=== PATIENT | male | born 1965 | race Caucasian/White ===

== ENCOUNTER 2021-09-27 06:38 | Inpatient (IN) ==
--- NOTE | 2021-09-07 15:25 | PAT Medication Instructions ---
Medication Instructions Date of Service September 07, 2021 Home Medications tamsulosin 0.4 mg capsule (Flomax) 0.4 mg PO QPM Take evening before surgery tamsulosin 0.4 mg capsule (Flomax) 0.4 mg PO QPM Other Notes If you have any questions please call us at [phone] or [phone] or [phone] or [phone]
--- NOTE | 2021-09-08 08:57 | Anesthesiology Consultation ---
Date of Service September 08, 2021 Assessment & Plan (1) Encounter for pre-operative examination: COVID screening: Per assessment on 09/08: No known COVID-19 positive contacts or current COVID-19 related symptoms. Travel screen negative. Patient vaccinated. Surgeon arranging preop COVID testing. Awaiting results. Chart Review Chart Review: Acceptable Risk for Surgery and Patient seen in Pre Admission Testing Teaching & Discussion Pre-Anesthesia Teaching/Discussion Notes: Instructed NPO after midnight before surgery,except medications with 15 cc of water. Medication instructions provided according to the PAT guidelines. History Surgery Operation Date: 09/27/21 11:35 Proposed Procedures p Robotic Laparpscopic assisted Radical Retropubic Prostatectomy, Possible Open, Possible Pelvic Lymph Node Dissection, Possible Suprapubic Tube Placement - Godfrey Mcadams MD Height/Weight Height: 5 ft 8 in Weight: 82.6 kg Allergies Allergy/AdvReac Type Severity Reaction Status Date / Time No Known Allergies Allergy Verified 09/07/21 14:36 Medications Home Medications Medication Instructions Recorded Confirmed Last Taken tamsulosin 0.4 mg capsule (Flomax) 0.4 mg PO QPM 08/31/21 09/07/21 Unknown Past Medical History Medical History Prostate cancer Exercise / Class Metabolic Activity II 4-5 Yardwork/Stairs/Walk up hill (one FS (no CP, no SOB)) Past Family History Family History Father Hypertension Heart disease Mother Hypertension Lung cancer Brain cancer Past Surgical History Surgical History H/O foot surgery Right foot ORIF with plate and screws H/O right wrist surgery right wrist ORIF H/O thumb surgery right thumb x2 History of appendectomy History of tonsillectomy Hx of vasectomy Past Anesthesia History No Hx of Anesthesia Complications and No Family Hx of Anesthesia Complications History of PONV No Hx of PONV and No Hx of Motion Sickness Social History Smoking Status: Never smoker Do You Dip or Chew Tobacco: No Hx Alcohol Use: No Hx Substance Use: No substance use type: does not use Review of Systems Patient denies chest pain, shortness of breath, dyspnea on exertion, fever, chills, cough, wheezing, palpitations. Physical Exam Vital Signs VITALS BP 131/76 P 58 TEMP 97.8 SP02 96%RA RESP 16 PHYSICAL Full cervical extension range of motion. Full TMJ range of motion. TMD 3 finger breaths Mallampati Score 2 Dentition: intact Lungs: clear throughout to auscultation Cardiac: regular rate and rhythm, no murmurs noted Spine: normal Carotid arteries: negative bruit Extremities: no edema Lab Results Anesthesia Preop Results Results Anesthesia Widget: WBC 5.52 K/uL (4.8-10.8) 09/08/21 Hgb 15.6 g/dL (14.0-18.0) 09/08/21 Hct 46.3 % (42-52) 09/08/21 Plt 279 K/uL (130-400) 09/08/21 Na 137 mmol/L (136-145) 09/08/21 K 4.2 mmol/L (3.5-5.1) 09/08/21 Cl 105 mmol/L (98-107) 09/08/21 CO2 27 mmol/L (21-32) 09/08/21 BUN 12 mg/dl (6-23) 09/08/21 Creat 0.88 mg/dl (0.6-1.4) 09/08/21 Glucose Level 95 mg/dl (70-99(Fasting)) 09/08/21 Urine Color Yellow 09/08/21 Urine Appearance Clear (Clear) 09/08/21 Urine pH 7.5 (4.5-7.5) 09/08/21 Urine Specific [place] 1.005 (1.000-1.030) 09/08/21 Urine Protein Negative (Negative) 09/08/21 Urine Glucose (UA) Negative (Negative) 09/08/21 Urine Ketones Negative (Negative) 09/08/21 Urine Blood Negative (Negative) 09/08/21 Urine Nitrite Negative (Negative) 09/08/21 Urine Bilirubin Negative (Negative) 09/08/21 Urine Urobilinogen Negative (Negative) 09/08/21 Urine Leukocyte Esterase Negative (Negative) 09/08/21 Blood Type O Positive 09/08/21 Antibody Screen NEGATIVE 09/08/21 Testing Electrocardiogram Date: 09/08/21 SB at 58bpm. Voltage criteria for LVH. unconfirmed report. Chest X-Ray Date: 09/08/21 Findings: + NAD
[~2021-09-27 06:38] MED LIST: HEPARIN SOD 5,000 UNIT/0.5 ML VIAL SC SCH; LR 15ML/HR IV SCH
[2021-09-27] MEDS ORDERED: BUPIVACAINE 0.5 % 5 MG/1 ML MPF 30ML VIAL ONE (06:57)
[2021-09-27] MEDS ORDERED: fentaNYL citrate 100 MCG/2 ML VIAL ONE ×2 (07:00→09:00)
[2021-09-27] MEDS ORDERED: MIDAZOLAM HCL 1 MG/ML 2ML VIAL ONE (07:00)
[2021-09-27] MEDS ORDERED: ACETAMINOPHEN 1000 MG/100 ML IV IV ONE (07:43)
[2021-09-27] MEDS ORDERED: fentaNYL citrate 100 MCG/2 ML VIAL IV PRN (08:20)
[2021-09-27] MEDS ORDERED: ONDANSETRON INJ 2 MG/ML 2 ML VIAL IV PRN ×2 (08:20→14:10)
[2021-09-27] MEDS ORDERED: ATROPINE SULFATE 0.1 MG/ML 10ML SYR IV PRN (08:20)
[2021-09-27] MEDS ORDERED: ePHEDrine sulfate 50 MG/ML AMP IV PRN (08:20)
--- NOTE | 2021-09-27 08:28 | History & Physical Bridge Note ---
Date of Service September 27, 2021 History & Physical Bridge Note I have examined the patient, reviewed the History & Physical and in the interval since the performance of the History & Physical I have noted the following changes of clinical significance: no changes noted
[2021-09-27] MEDS ORDERED: BELLADONNA/OPIUM SUPP 60 MG SUPP PR ONE ×2 (08:53→09:22)
[2021-09-27] MEDS ORDERED: DEXAMETHASONE SOD INJ 4 MG/ML VIAL ONE (09:03)
[2021-09-27] MEDS ORDERED: ONDANSETRON INJ 2 MG/ML 2 ML VIAL ONE ×2 (09:03→12:25)
[2021-09-27] MEDS ORDERED: PROPOFOL IV EMULSION 10 MG/ML 20 ML VIAL IV ONE (09:03)
[2021-09-27] MEDS ORDERED: LIDOCAINE 2% 2 ML VIAL/AMP(20MG/ML) INFIL ONE (09:03)
[2021-09-27] MEDS ORDERED: ROCURONIUM BROMIDE 10 MG/ML 5 ML VIAL IV ONE ×6 (09:03→12:25)
[2021-09-27] MEDS ORDERED: NEOSTIGMINE METHYLSULFATE 1 MG/ML 10ML VIAL ONE (12:25)
[2021-09-27] MEDS ORDERED: KETOROLAC 30 MG/ML VIAL ONE (12:25)
[2021-09-27] MEDS ORDERED: GLYCOPYRROLATE 0.2 MG/ML VIAL ONE (12:25)
--- NOTE | 2021-09-27 12:29 | Operative Report ---
PG Post Operative Report Pre & Post Diagnosis Operation Date: 09/27/21 08:35 Pre-Op Diagnosis: Prostate Cancer Post-Op Diagnosis: Prostate Cancer I identified the patient and participated in the time-out.: Yes Procedure Operation Date: 09/27/21 08:35 Actual Procedures p Robotic Assisted Laparoscopic Prostatectomy with Bilateral Pelvic Lymph Node Dissection(Not Applicable) - Bryant Mcadams MD Surgeon Bryant Mcadams MD Supervisor Covering And Lining Constanza Olivas Estimated Blood Loss 150 Findings Consistent with Post-Op Diagnosis Specimens 1. Periprostatic fat 2. Left pelvic lymph nodes 3. Right pelvic lymph nodes 4. Prostate and seminal vesicles Description of Procedure The patient was identified in the preoperative holding area, appropriate informed consents were reviewed and completed, and he was transported to the operating suite. Subcutaneous heparin was administered in the pre-operative holding area. Upon arrival in the operating suite, he received appropriate antibiotics and general anesthesia. He was positioned in dorsal lithotomy, a B&O suppository was inserted after digital rectal exam, and he was prepped and draped in standard fashion. A Sesay catheter was inserted in the sterile field. A Veress needle was passed per umbilicus with uniform insufflation of the abdomen to 15mmHg. He was placed in steep Trendelenburg position. A periumbilical incision was then made to accommodate a 12mm Visiport with 10mm 0degree laparoscope. Inspection of the abdomen was carried out, and there was no evidence of traumatic entry or injury secondary to the Veress needle. After confirming a clear anterior abdominal wall, ports were subsequently placed in standard robotic prostatectomy fashion without incident. To begin the robotic portion of the case, the left lateral aspect of the sigmoid was mobilized off of the left pelvic side wall to allow the pouch of Dillon to be appropriately visualized. I then made an incision in the pouch of Dillon, overlying the seminal vesicles. Both SVs as well as the ampullae of the vasa were entirely dissected, with the vasa transected 3cm from the prostate. The medial umbilical ligaments were then controlled with bipolar electrocautery just inferior to the umbilicus. Following cauterization, they were divided utilizing monopolar cautery. A peritoneal incision was carried from this location to the medial aspect of the internal inguinal rings bilaterally with care to avoid opening through the ring. This incision was concluded when the vas deferens was reached. Dissection of the bladder and prostate off of the posterior aspect of the pubic arch was completed allowing full visualization of the prostate. Of note, he appears to have both right and left inguinal hernias without any abdominal contents herniated through the gap. Because of his relatively large gap on the left I utilized a 0 Ethibond stitch to loosely approximate the tissue and prevent strangulation/incarceration of any tissue into this area in the immediate perioperative time. The fat overlying the prostate was removed en bloc and passed off the table as a specimen labeled "periprostatic fat". The endopelvic fascia was cleared during this portion of the procedure, and subsequently opened - first on the right and then the left. The incision through the endopelvic fascia began near the prostate-bladder junction and was carried to the apex with extreme care to preserve all lateral levator musculature as well as the periurethral musculature and sphincter complex. I additionally preserved the puboprostatic ligaments. I then controlled the DVC with a 3-0 V-lock suture in overlapping/figure of 8 fashion. The lymph node dissection was then conducted. External iliac vessels were identified on the pelvic side wall. The packet of fat and lymphatic tissue that resides just under the iliac vein was elevated and off of the vein with a split and roll technique. The packet was dissected laterally to the circumflex vein and distally to the obturator nerve which was preserved. The proximal aspect of the packet was carried towards the bifurcation of the iliac vessels. A combination of monopolar and bipolar cautery were used to assist with control. After completing the dissection on both sides, the packets were collected and passed off of the table as specimens labeled "pelvic lymph nodes". My attention then returned to the prostate, with identification of the bladder neck aided by gentle traction on the Sesay catheter and lateral to medial pressure at the presumed level of the bladder neck with the robotic instruments. An anterior cystotomy was made, the Sesay balloon deflated and the catheter guided through the incision to allow anterior retraction. I attempted to preserve maximal bladder neck musculature as I circumferentially dissected around the bladder neck. After incision through the posterior aspect of the mucosa, the dissection was carried through detrusor muscle until the bilateral ampullae of the vasa were identified. The previously dissected vasa and SVs were brought through the incision and used to elevated the prostate anteriorly. A posterior plane behind the prostate was then developed - splitting Denonvilliers's fascia. This dissection was carried as far as possible towards the apex as well as far as possible laterally. An incision in the lateral prostatic fascia was then made bilaterally to facilitate control of the vascular pedicles and preservation of the nerve bundles. Vasculature running along the posterior/lateral aspect of the prostate was preserved as well as the tissue containing the nerves. The pedicles were then controlled with a series of Weck clips. The apical attachments of the prostate were remaining at that stage. The DVC was divided after control with bipolar cautery over the prostate. Continuous inspection from anterior and lateral views allowed me to closely follow the apical contour of the prostate and maximally preserve urethral length and tissue. The prostate was entirely freed at that point, and collected in an EndoCatch bag before being moved out of the field of vision. Hemostasis was confirmed and anastomosis of the bladder and urethra was completed utilizing a double armed V- Lock stitch. A new Sesay catheter was inserted and the anastomosis tested with irrigation. There was no evidence of leak. A siomara style stitch was placed bilaterally to functionally marsupialize the area of the lymph node dissection. The robot was undocked, the specimen extracted through expansion of the amilcar- umbilical camera port. The fascia was closed with a series of 0-PDS figure of 8 stitches. The right assistant site manager port was closed in two layers - with a figure of 8 0-Vicryl to reapproximate the fascia followed by 4-0 Monocryl to close the skin. Monocryl was used to close all other skin incisions. All wounds were dressed with Dermabond. The case was concluded and the patient taken to the PACU in stable condition. Constanza Olivas assisted from incision to closure. I attest to the content of the Intraoperative Record and any orders documented therein. Any exceptions are noted below.
--- NOTE | 2021-09-27 13:25 | Anesthesiology Progress Note ---
Date of Service September 27, 2021 Anesthesia Post Procedure Vital Signs Vital Signs: Temp Pulse Resp BP Pulse Ox 09/27/21 13:15 80 15 130/89 94 09/27/21 13:05 80 14 131/92 97 09/27/21 12:55 77 15 136/84 95 09/27/21 12:45 89 14 129/84 97 09/27/21 12:35 71 18 124/77 95 09/27/21 12:28 98.1 F 88 18 127/77 96 09/27/21 07:02 98.2 F 68 20 145/86 H 96 Transfer of Care Handoff Completed per policy Notes Mental Status: alert / awake / arousable and participated in evaluation Patient Amnestic to Procedure: Yes Nausea / Vomiting: adequately controlled Pain: adequately controlled Airway Patency, RR, SpO2: stable & adequate BP & HR: stable & adequate Hydration State: stable & adequate Anesthetic Complications: no major complications apparent and Pt Satisfied with anesthetic care
[2021-09-27] MEDS ORDERED: MoRPHine SULFATE 2 MG/ML CARP IV PRN (14:10)
[2021-09-27] MEDS ORDERED: oxyCODONE HCL IR 5 MG TAB (IMMEDIATE RELEASE) PO PRN ×2 (14:10)
[2021-09-27] MEDS ORDERED: MoRPHine SULFATE 4 MG/ML 1 ML CARP\\VIAL IV PRN (14:10)
[2021-09-27 14:41] LABS: Basophils # (auto) 0.01 K/uL (0-0.2); Basophils % (auto) 0.1 %; Hematocrit (blood only) 44.4 % (42-52); Hemoglobin 15.1 g/dL (14.0-18.0); Immature Granulocytes # (auto) 0.04 K/uL (0.00-0.02); Immature Granulocytes % (auto) 0.3 %; Lymphocytes # (auto) 0.61 K/uL (1.2-3.4); Lymphocytes % (auto) 3.9 %; Mean Corpuscular Hemoglobin 29.7 pg (25-34); Mean Corpuscular Volume 87.2 fL (80-100); Mean Platelet Volume 10.1 fL (7.4-10.4); Monocytes # (auto) 0.25 K/uL (0.11-0.59); Monocytes % (auto) 1.6 %; Neutrophils # (auto) 14.54 K/uL (1.4-6.5); Neutrophils % (auto) 94.1 %; Platelet Count 236 K/uL (130-400); RDW Coefficient of Variation 12.8 % (11.5-14.5); RDW Standard Deviation 41.1 fL (36.4-46.3); Red Blood Count 5.09 M/uL (4.7-6.1); White Blood Count 15.45 K/uL (4.8-10.8)
[2021-09-27] MEDS: LACTATED RINGER'S 1,000 ML IV SCH ×2 (15:04→23:35)
[2021-09-27] MEDS: ACETAMINOPHEN 325 MG TAB PO SCH ×2 (15:27→20:27)
[2021-09-27 15:31] LABS: BUN Creatinine Ratio 17.1 (10-20); Calcium 8.7 mg/dl (8.5-10.1); Creatinine Clr Calc Pharmacy 103.6 ml/min; Est GFR (Non-African American) 97.5 ml/min; Potassium 3.9 mmol/L (3.5-5.1)
[2021-09-27] MEDS ORDERED: COUGH DROP (SUGAR FREE) LOZ 24 LOZ/1 BOX BUCCAL ONE (15:45)
[2021-09-27] MEDS: ceFAZolin 2000MG 2,000 MG/15 ML SYR IV SCH ×2 (17:08→23:36)
[2021-09-27] MEDS: DOCUSATE SODIUM 100 MG CAP PO SCH (20:26)
[2021-09-27] MEDS: HEPARIN SOD 5,000 UNIT/0.5 ML VIAL SQ SCH (20:27)
[2021-09-28] MEDS: ACETAMINOPHEN 325 MG TAB PO SCH ×2 (02:28→08:30)
[2021-09-28 06:33] LABS: Basophils # (auto) 0.01 K/uL (0-0.2); Basophils % (auto) 0.1 %; Eosinophils # (auto) 0.03 K/uL (0-0.5); Eosinophils % (auto) 0.3 %; Hemoglobin 13.2 g/dL (14.0-18.0); Immature Granulocytes # (auto) 0.01 K/uL (0.00-0.02); Immature Granulocytes % (auto) 0.1 %; Lymphocytes # (auto) 2.04 K/uL (1.2-3.4); Lymphocytes % (auto) 21.7 %; Mean Corpuscular Volume 87.9 fL (80-100); Monocytes # (auto) 1.37 K/uL (0.11-0.59); Monocytes % (auto) 14.6 %; Neutrophils # (auto) 5.95 K/uL (1.4-6.5); Neutrophils % (auto) 63.2 %; Platelet Count 238 K/uL (130-400); Red Blood Count 4.55 M/uL (4.7-6.1); White Blood Count 9.41 K/uL (4.8-10.8)
[2021-09-28 06:49] LABS: BUN Creatinine Ratio 11.9 (10-20); Calcium 8.5 mg/dl (8.5-10.1); Creatinine Clr Calc Pharmacy 101.2 ml/min; Est GFR (African American) 111.9 ml/min; Est GFR (Non-African American) 96.5 ml/min; Potassium 3.8 mmol/L (3.5-5.1)
--- NOTE | 2021-09-28 08:17 | Urology Progress Note ---
Date of Service September 28, 2021 Assessment & Plan (1) Prostate cancer: Plan: Postop day #1 status post prostatectomy Doing extremely well overall Advance diet Discharge home this morning Admission and Anticipated Discharge Date Admission Date: September 27, 2021 Subjective Doing great overall Is been ambulating without difficulty Minimal discomfort Ready for diet Likely discharge home Labs appropriate Physical Exam Physical Exam: Incisions appropriate Skin glue in place No erythema or bruising Urine clear Results & Data ([facility]) Vital Signs (Past 12 Hours) Vital Signs Temp Pulse Resp BP Pulse Ox 09/28/21 07:19 36.6 C 68 18 113/67 94 09/28/21 03:30 36.7 C 66 16 112/61 92 09/27/21 21:15 36.7 C 69 16 139/74 94 PG Care Time/CCT Total # of Minutes Spent Total Time Spent with Patient: Total time spent is greater than 50% in coordination of care (as documented) at patient's floor/unit and/or counseling patient: Coding Level of Care Code 17913 Subseq Hosp Care Lvl 2 Diagnoses Prostate cancer C61
--- NOTE | 2021-09-28 08:18 | Discharge Summary ---
Date of Service September 28, 2021 Principal Diagnosis Prostate cancer Discharge Data Allergies Allergy/AdvReac Type Severity Reaction Status Date / Time No Known Allergies Allergy Verified 09/27/21 07:01 Procedures Performed Operation Date: 09/27/21 08:35 Actual Procedures p Robotic Assisted Laparoscopic Prostatectomy with Bilateral Pelvic Lymph Node Dissection(Not Applicable) - Bryant Mcadams MD Hospital Course (1) Prostate cancer: Patient admitted for a robotic prostatectomy - details of the procedure as dictated previously in my operative report - in summary, he tolerated the procedure very well - he was in stable condition overnight with appropriate urine output and stable labs - he was subsequently discharged home with a west catheter - he was in stable condition at the time of discharge Total Time Total Time Spent Total Time Spent (In Minutes): 15 Discharge Plan Discharge Items Reason For Visit: Prostate Cancer Follow-up/Referrals: Patience Kelley, PAJereC [Primary Care Provider] - Medications and DC Order Prescriptions: No Action tamsulosin [Flomax] 0.4 mg capsule 0.4 mg PO QPM RF: 0 Krames/Other Patient Handouts: Indwelling Urinary Catheter Dc, Leg Bag Care Dc Admission Data Admit Date/Time: 09/27/21 12:27 Attending Provider: Bryant Mcadams Admit Provider: Bryant Mcadams Primary Care Provider: Patience Kelley Coding Level of Care Code D/C DAY MANAGEMENT <30 MINS Diagnoses Prostate cancer C61
[2021-09-28] MEDS: HEPARIN SOD 5,000 UNIT/0.5 ML VIAL SQ SCH (08:31)
[2021-09-28] MEDS: DOCUSATE SODIUM 100 MG CAP PO SCH (08:31)
[2021-09-28] MEDS: LACTATED RINGER'S 1,000 ML IV SCH (10:06)
== END 2021-09-28 14:11 | disposition home or self-care (01) | DRG 708 ==
LOC: ASU 06:38 → 3W 12:27